=== PATIENT | male | born 1950 | race Caucasian/White ===

== ENCOUNTER 2023-03-08 13:56 | Emergency (ER) | payer OTHER, MEDICARE, BC ==
[2023-03-08] MEDS ORDERED: Lidocaine 1% 5 ML VIAL INJECT ONE (14:03)
[2023-03-08] MEDS ORDERED: Bacitracin Oint 1 GM U/D Packet TOP ONE (14:03)
== END 2023-03-08 15:36 | disposition home or self-care (01) ==
LOC: JP.ED 13:56
DX: S61.012A Laceration without foreign body of left thumb without damage to nail, initial encounter (principal); Z79.02 Long term (current) use of antithrombotics/antiplatelets; Z79.82 Long term (current) use of aspirin; W23.1XXA Caught, crushed, jammed, or pinched between stationary objects, initial encounter
CPT/HCPCS: 12002; 73140-FA; 99283